=== PATIENT | female | born 1975 | race Caucasian/White ===

== ENCOUNTER 2016-08-04 03:58 | Emergency (ER) | payer MEDICAID ==
[~2016-08-04] VITALS: Ht 167.6 cm; Wt 61.2 kg
[~2016-08-04 03:58] MED LIST: ASPIRIN325 M1 PO; CIPRO 500MG TA500 MG PO; KEFLEX 500MG.500 MG PO; TUMS 400MG TAB400 MG OR; ULTRAM 50 MG TA50 MG PO; ZANTAC 150150 MG PO
--- NOTE | 2016-08-04 04:15 | Emergency Room Report ---
History of Present Illness Time Seen by [id number] L Presenting Problem in Triage Pt arrived:Ambulance Stretcher Presenting Problem:STATES DRINKING TONIGHT, CALLED POLICE TO HAVE PATIENT REMOVED FROM HOME. POLICE CALLED EMS TO TRANSPORTED TO ER Onset of symptoms date/time:08/04/16/ or onset unknown for:MEDICAL HX UNKNOWN Treatment Prior to Arrival: PLASTERER MAINTENANCE Provided by: Sepsis Risk Assessment: Temp: 97.5 B/P: MAP: Pulse: 76 Resp: 18 Recent fever? N Clinical Suspician of Infection? N Mental Status: 2 - Mildly Altered Sepsis Risk:Low Sepsis Risk Have you (or family members/close friends) recently traveled outside the [place]? N If Yes, where/when: Have you had exposure to infectious disease within the past month? N TB? Other? Specify: Source patient, RN notes reviewed, EMS, old records Exam Limitations no limitations Comment pt with etoh use and no trauma Cardiac Chest Pain Chest pain indicative of cardiac No Timing/Duration this evening Severity moderate ALLERGIES Coded Allergies: Sulfa (Sulfonamide Antibiotics) (Intermediate, I-HIVES 08/04/16) History Medical History General CAD? No Angina: No PA: No Hypertension? No Hyperlipidemia? No CHF? No DVT? No PE? No COPD? No Asthma? No Anemia? No GERD? No Gastric ulcers? No GI Bleed? No Hernia? No Thyroid Problems? No Hypothyroidism? No CVA? No Seizures? No Diabetes? No Renal Insuffiency? No End Stage Renal Disease? No UTI? No Stones? No BPH? No GB Disease: No Nephritic Syndrome? No Asplenia? No Hepatitis? No Sickle Cell Disease? No Arthritis? No Migraines? No Cataracts? No Glaucoma? No MRSA? No TB? No Anxiety? No Depression? No Cancer? No More? 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 Respiratory denies cough, denies shortness of breath Cardiovascular denies chest pain, denies syncope Gastrointestinal denies abdominal pain, denies diarrhea, denies vomiting Genitourinary denies: dysuria, frequency, hesitancy, hematuria. Musculoskeletal denies joint pain, denies joint swelling, denies neck pain Skin denies rash Psychiatric/Neurological denies headache, denies seizure Physical Exam Vital Signs Vital Signs Date Time Temp Pulse Resp B/P Pulse O2 O2 Flow FiO2 Ox Delivery Rate 08/04 0612 77 18 97/51 94 08/04 0545 75 18 101/51 95 08/04 0508 77 18 100/55 94 08/04 0438 74 18 112/72 94 08/04 0400 97.5 76 18 94 - WBC >12,000 or <4,000 or 10% bands? 2 or more SIRS Criteria Met? B/P: MAP: Creatinine >2.0? UA output<0.5ml/kg/hr for 2 hrs? Platelet count >100,000? Lactate >2.0mmol/1? INR >1.2 or PTT > than 60 sec? Evidence of Organ Dysfunction? Provider documented clinical suspician of infection? N Sepsis Criteria Count: 0 Sepsis Risk: Low Sepsis Risk General Appearance no apparent distress Eye Exam - bilateral eye PERRL, bilateral eye EOMI Ear, Nose, Throat normal ENT inspection Neck supple Respiratory Status No: respiratory distress. 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 No Results/Orders Laboratory Tests 08/04/16404: Opiates Screen NEGATIVE, Urine Methadone Screen NEGATIVE, Barbiturates NEGATIVE, Phencyclidine Screen NEGATIVE, Amphetamines Screen NEGATIVE, Benzodiazepines Screen NEGATIVE, Cocaine Screen NEGATIVE, Marijuana (THC) Screen NEGATIVE 08/04/16404: Sodium 142, Potassium 3.6, Chloride 106, Carbon Dioxide 30, BUN 8, Creatinine 0.8, Estimated Creat Clear 89, Estimated GFR (MDRD) 79, Glucose 109 H, Calcium 8.7, Total Bilirubin 0.2, AST 9 L, ALT 24, Alkaline Phosphatase 105, Total Protein 7.4, Albumin 3.8, Globulin 3.6 H, Albumin/Globulin Ratio 1.1, WBC 9.9, RBC 4.42, Hgb 13.7, Hct 41.7, MCV 94.4, RDW 12.2, Plt Count 201, MPV 7.4, Gran % 49.8, Gran # 4.9, Lymphocytes % 42.0, Monocytes % 4.2, Eosinophils % 3.2, Basophils % 0.8, Lymphocytes # 4.1, Monocytes # 0.4, Eosinophils # 0.3, Basophils # 0.1, PUBS MCHC 32.7, MCH 30.9, Salicylates 6.1, Acetaminophen 0 L, Alcohols 312 *H, Urine Color YELLOW, Urine Appearance CLEAR, Urine pH 6.0, Ur Specific [place] <= 1.005, Urine Protein NEGATIVE, Urine Ketones NEGATIVE, Urine Blood TRACE-LYSED, Urine Nitrate NEGATIVE, Urine Bilirubin NEGATIVE, Urine Urobilinogen 0.2, Ur Leukocyte Esterase TRACE H, Urine Glucose NEGATIVE Current Medication Orders Sig/Alley Start time Last Medication Dose Route Stop Time Status Admin Sodium Chloride 10 ML PRN PRN 08/04 414 AC IV 08/05 410 Sodium Chloride 1,000 ML .Q1H1M 08/04 414 DC 08/04 IV 08/046 Sodium Chloride 10 ML PRN PRN 08/04 414 AC IV 08/05 414 Sodium Chloride 1,000 ML .STK-MED ONE 08/04 401 DC IV Orders Procedure Date/time Status CHEST-PORTABLE 08/04 416 Active IV SALINE LOCK 08/04 410 Active URINALYSIS/COMPLETE 08/04 410 Complete SALICYLATE 08/04 410 Complete DRUG ABUSE SCREEN (10) 08/04 410 Complete COMPLETE METABOLIC PANEL 08/04 410 Complete CBC WITH AUTO DIFF 08/04 410 Complete ALCOHOL 08/04 410 Complete Acetaminophen 08/04 410 Complete XRAY/CT/US XRAY/CT/US XRAY chest XR interpretation by reviewed by me Xray Results normal/NAD Departure Departure Time of Disposition 612 Disposition DC Home or Self Care(routine) Clinical Impression Primary Impression: Alcohol intoxication Qualifiers: Complication of substance-induced condition: uncomplicated Qualified Code: F10.920 - Alcohol use, unspecified with intoxication, uncomplicated Condition STABLE Patient Instructions DI for Alcohol Abuse Additional Instructions please see pcp for follow up Discharge Counseling Counseled pt/family regarding diagnosis, test results, medications/RX, follow up needs ED Critical Care Critical Care No at [id number]
[2016-08-04 05:07] LABS: HEMOGLOBIN 13.7 g/dL (12.2-16.2); LYMPH # 4.1 K/mm3 (0.7-4.5)
[2016-08-04 05:08] LABS: URINE BILIRUBIN - DIPSTICK NEGATIVE (NEG); URINE BLOOD TRACE-LYSED (NEG)
[2016-08-04 05:12] LABS: AMPHETAMINES/METAMPHETAMINES NEGATIVE ng/mL (<1000)
--- NOTE | 2016-08-04 08:00 | RADIOLOGY REPORT PS360 ---
CHEST-PORTABLE HISTORY: Cough ETOH ORDERING PHYSICIAN: Lena Villa MD PATIENT AGE: 40 years COMPARISON: None available FINDINGS: The cardiomediastinal silhouette and pulmonary vascularity are within normal limits. Lung bases are underpenetrated. There is some increased density in the right lung base medially which may be related to underlying atelectasis or infiltrate versus vascular crowding from the hypoventilation and underpenetration. Consider upright PA and lateral chest for further evaluation. IMPRESSION: Possible right basilar infiltrate
[2016-08-04 10:31] VITALS: BP 100/59
--- OUTSIDE RECORDS SUMMARY | 2016-08-10 05:10 | External Medical Summary Rpt ---
Author Author [employer] Organization [employer] Address Unknown Phone Unavailable Purpose Continuity of Care Document - through 2016
--- OUTSIDE RECORDS SUMMARY | 2016-08-10 05:10 | External Medical Summary Rpt ---
Author Author , Organization [employer] Address Unknown Phone Unavailable Purpose Continuity of Care Document - 10-01-2013 through 2016 Results Labs Lab Lab Date Result Refere Interp Status Commen Order Detail nces retati t Range on CBC WITH AUTO DIFFERENTIAL (10-01-2013 12:10) AUTOMAT 67.8 % 46.0-72 Normal complet ED 014 .0 ed NEUTROP 12:10 HILS % AUTOMAT 3.3 % 1.0-15. Normal complet ED 014 0 ed MIXED 12:10 WBC % AUTOMAT 28.9 % 11.0-45 Normal complet ED 014 .0 ed LYMPH % 12:10 PLATELE 223 150-400 Normal complet T COUNT 014 K/uL ed 12:10 MEAN 34.5 31.0-36 Normal complet CORPUSC 014 g/dL .0 ed ULAR 12:10 HGB CONC MEAN 32.0 pg 26.0-32 Normal complet CORPUSC 014 .0 ed ULAR 12:10 HEMOGLO BIN MEAN 93 fL 81-99 Normal complet CORPUSC 014 ed ULAR 12:10 VOLUME HEMATOC 38.5 % 34.0-46 Normal complet RIT 014 .0 ed 12:10 HEMOGLO 13.3 11.0-15 Normal complet BIN 014 g/dL .0 ed 12:10 RED 2 4.16 3.70-5. Normal complet BLOOD 014 M/uL 60 ed COUNT 12:10 WHITE 10-01-2 11.1 4.4-10. Above complet BLOOD 014 K/uL 8 high ed COUNT 12:10 normal
--- OUTSIDE RECORDS SUMMARY | 2016-08-10 05:10 | External Medical Summary Rpt ---
Demographics Preferred Language Kinyarwanda Marital Status Unknown Mu-Ism Affiliation Unknown Race Unknown Ethnic Group Unknown Author Author , Organization [employer] Address Unknown Phone Unavailable Purpose Continuity of Care Document - through 2016 Immunization No patient found.
--- OUTSIDE RECORDS SUMMARY | 2016-08-10 05:10 | External Medical Summary Rpt ---
Demographics Preferred Language Slovak Marital Status Unknown Voodoo Affiliation Unknown Race Unknown Ethnic Group Unknown Author Author , Organization [employer] Address Unknown Phone Unavailable Purpose Continuity of Care Document - through 2016 Immunization No patient found.
== END 2016-08-04 10:32 | disposition home or self-care (01) ==
LOC: ER 03:58
PROVIDERS: Emergency Medicine
DX: F10.920 Alcohol use, unspecified with intoxication, uncomplicated (principal)